=== PATIENT | female | born 1950 | race Caucasian/White ===

== ENCOUNTER 2021-10-16 09:11 | Emergency (ER) | payer MEDICARE ==
[~2021-10-16] VITALS: Ht 167.6 cm; Wt 93.0 kg
[2021-10-16 12:05] VITALS: BP 180/80
== END 2021-10-16 12:50 | disposition home or self-care (01) ==
LOC: ER 09:11
DX: J06.9 Acute upper respiratory infection, unspecified (principal); E11.9 Type 2 diabetes mellitus without complications; I10 Essential (primary) hypertension; Z20.822 Contact with and (suspected) exposure to COVID-19; Z90.710 Acquired absence of both cervix and uterus
CPT/HCPCS: 87426; 99283

== ENCOUNTER 2025-03-08 11:42 | Emergency (ER) | payer MEDICARE ==
[~2025-03-08] VITALS: Ht 167.6 cm; Wt 89.0 kg
[2025-03-08 11:43] VITALS: O2SAT 96
[2025-03-08 11:46] VITALS: BP 140/86; PULSE 95; RESP 18; TEMP 36.9; O2SAT 98
[2025-03-08] MEDS ORDERED: LIDO-53 TP (14:39)
== END 2025-03-08 14:55 | disposition home or self-care (01) ==
LOC: ER 11:42
DX: M79.10 Myalgia, unspecified site (principal); E11.9 Type 2 diabetes mellitus without complications; I10 Essential (primary) hypertension; Z90.710 Acquired absence of both cervix and uterus; V89.2XXA Person injured in unspecified motor-vehicle accident, traffic, initial encounter; Y93.89 Activity, other specified; Y92.89 Other specified places as the place of occurrence of the external cause; Y99.8 Other external cause status
CPT/HCPCS: 71046; 99283